=== PATIENT | female | born 1980 | race Caucasian/White ===

== ENCOUNTER 2018-07-27 21:48 | Inpatient (IN) ==
--- NOTE | 2018-07-27 20:54 | OB/GYN History & Physical ---
Date of Encounter: 07/27/18 Time of Encounter: 20:50 Assessment and Plan (1) Spontaneous onset of labor Current visit: Yes Status: Acute (2) Polyhydramnios Current visit: Yes Status: Acute Qualifiers: Fetus number: single or unspecified fetus Trimester: third trimester Qualified Code(s): O40.3XX0 - Polyhydramnios, third trimester, not applicable or unspecified (3) 38 weeks gestation of Current visit: No Status: Acute History of Present Illness Chief complaint: contractions HPI: Ms. Chavez is a 37 year old female G 2 P 1-0-0-1 at 38 4/7 weeks presents to labor and delivery with contractions that began earlier this evening. She is breathing thru them and getting uncomfortable. She is noticing some blood with wiping and blood in the toilet. She denies any leaking fluid. She reports good movement. Past Med Surg Social Fam HX - Past Medical History Source: patient Medical history: non-contributory Psychiatric history: depression - Past Surgical History Surgical History: other (wisdom teeth) - Social History Smoking Status: Never smoker Smokeless Tobacco Status: No Alcohol use: none Drug use: none - Family History Father Family Member Ethnicity: Non- Living Status: Still Living Hx Family Cardiac Disorders: Yes (bypass, stent placement) Hx Family Respiratory Disorders: No Hx Family Cancer: No Hx Family GI Disorders: No Hx Family Endocrine Disorder: No Hx Family Neuromuscular Disorders: No Hx Family Neurologic Disorders: No Hx Family HEENT Disorders: No Hx Family Autoimmune Disorders: No Obstetrical History - Pregnancies : 2 Para: 1 Term: 1 : 0 Ab's: 0 Livin - History/Complications History/Complications: AMA Medications and Allergies Famotidine 20 mg PO ONCE 07/23/18 [History] Tablet 1 tab PO DAILY 07/23/18 [History] Allergy/AdvReac Type Severity Reaction Status Date / Time No Known Allergies Allergy Verified 07/27/18 21:15 Review of System OB All systems PM: reviewed and no additional remarkable complaints except as stated - Constitutional Constitutional ROS IM: no chills, no fever(s), no headache(s) - Cardiovascular Cardiovascular: no chest pain - Respiratory Respiratory: no dyspnea on exertion, no wheezing - Genitourinary Genitourinary: amenorrhea Exam - Constitutional Constitutional: well developed, well nourished, no acute distress, average body habitus - HEENT HEENT: EOMI - Lungs Respiratory exam: CTAB - Cardiovascular Cardiovascular exam: RRR - Abdomen Abdomen: Present: bowel sounds normal, gravid, non tender - Vulva Vulva: bilateral: normal - Cervix Dilation: 6 (bulging bag of water) Effacement: 80 Station: -2 - Anus/Rectum Anus/Rectum: Present: normal perianal skin Results Result Diagrams: 07/27/18 20:40 All other labs normal. US - abdomen: image reviewed (EFW 3519 gm (93.9%) and RAOUL 27.66 cm cephalic on 07/13/2018) - VTE Reasons for not Prescribing Prophylaxis: Treatment not Indicated - Low risk for VTE
[2018-07-27 21:23] LABS: Basophils % 0.4 %; Eosinophils % 0.6 %; Hematocrit 26.9 % (35.3-44.9); Immature Granulocytes % 0.9 % (0-4); Lymphocytes # 1.8 K/mcL (0.6-4.6); Lymphocytes % 26.8 %; Mean Corpuscular HGB Conc 29.7 g/dL (31.6-35.5); Mean Corpuscular Hemoglobin 23.6 pg (28.0-33.3); Mean Corpuscular Volume 79.4 fL (83.0-100.0); Monocytes # 0.4 K/mcL (0.0-1.3); Monocytes % 5.3 %; Neutrophils # 4.5 K/mcL (1.6-8.9); Nucleated Red Blood Cells 0.4 /100 WBC (0); Platelet Count 178 K/mcL (140-400); Red Blood Count 3.39 M/mcL (3.82-4.97); Red Cell Distribution Width 15.5 % (11.5-14.5)
[~2018-07-27 21:48] MED LIST: *HR* Nalbuphine 10 MG/ML AMPUL IVP PRN; Epidural Premix (fent/bupiv) 110 ML EP ONE; Epidural Premix (fent/bupiv) 110 ML EP SCH; Famotidine 20 MG/2 ML VIAL IVP PRN; Lidocaine -MPF 1% 5 ML AMPUL ONE; Metoclopramide 10 MG/2 ML VIAL IVP PRN; Naloxone 0.4 MG/ML INJ IVP PRN; Ondansetron 4 MG/2 ML VIAL IVP PRN; Ringers Solution, Lactated 1,000 ML IVC SCH; Ringers Solution, Lactated 1,000 ML ONE
[2018-07-27 21:51] LABS: Amphetamine Screen,Urine Negative ng/mL (Cutoff=1000); Barbiturate Screen,Urine Negative ng/mL (Cutoff=200); Benzodiazepines Screen,Urine Negative ng/mL (Cutoff=200); Cannabinoid Screen,Urine Negative ng/mL (Cutoff = 50); Cocaine Screen,Urine Negative ng/mL (Cutoff= 300); Opiate Screen,Urine Negative ng/mL (Cutoff=300); Phencyclidine Screen,Urine Negative ng/mL (Cutoff=25)
[2018-07-27 21:56] LABS: Protein/Creatinine Ratio,Urine 0.41 mg/mg (0.00-0.20)
--- NOTE | 2018-07-27 21:58 | Anesthesia Evaluation PreOp ---
Date of Encounter: 07/27/18 Time of Encounter: 21:56 - Past History Planned Operation: VERONICA Cardiac History: Denies any Significant Hx Pulmonary History: Denies Any Significant HX HOMEMAKER COMPANION History: Denies Any Significant HX Other Medical History: Denies Any Significant HX Anesthesia History: No Prior Anesthetic Complications, Past Anesthesia : Yes Alcohol Use: none Drug use: none Medications and Allergies Famotidine 20 mg PO ONCE 07/23/18 [History] Tablet 1 tab PO DAILY 07/23/18 [History] Allergy/AdvReac Type Severity Reaction Status Date / Time No Known Allergies Allergy Verified 07/27/18 21:15 - Meds/Allergy Pre-op Review Medications Reviewed: Yes Allergies Reviewed: Yes Beta Blockers on Current Med List: No Anesthesia Results - Labs 07/27/18 20:40 Anesthesia Exam O2 Sat Height 1.63 m Weight 82.8 kg Pain Scale: 10 Pain Scale Used: Numeric (1 - 10) - HEENT Pupil (Motor): Pupils equal Mallampati: II Teeth: Normal Oral Opening: Greater than 3 - HOMEMAKER COMPANION LOC: Oriented HOMEMAKER COMPANION Motor: Normal RUE, Normal LUE, Normal RLE, Normal LLE, Normal Face HOMEMAKER COMPANION Sensory: Normal: RUE, LUE, RLE, LLE, Face - Cardiac Rhythm: Regular Murmur: None JVD: No Carotid Bruit: No - Pulmonary Breath Sounds: bilateral Clear Respiratory Effort: Symmetrical Anesthesia Assess/Plan ASA Score: 2 Level of consciousness: Cooperative, Oriented Anesthetic Plan: General, Epidural Autologous Blood: Yes Monitoring Plan: Standard Monitors Anes Supervising Prov Stmt: previous epidural pt states that it "did not work" and that the sobeida before said "i have a curvature in my spine." pt did not have any other complications. all questions answered about epidural and risks/benefits discussed.
--- NOTE | 2018-07-27 22:00 | Anesthesia Procedures ---
Addendum entered and electronically signed by Maira Leon CRNA 07/28/18 13:39: Infant Delivery Date: 07/28/18 Infant Delivery Time: 09:02 Original Note: Date of Encounter: 07/27/18 Time of Encounter: 21:58 Procedures: Anesthesia - Epidural/Spinal Patient ID/Chart reviewed: Yes Patient examined: Yes OB Eval: Gestational age: 38.4 OB Eval: : 2 OB Eval: Hx Para: 1 OB Eval: Dilated at (cm): 6 OB Eval: Contractions: Non-stressed pattern Consent Obtained: Yes Supplemental Oxygen: None/Room Air Site Prep: Aseptic Technique, Sterile prep and drape, Povidone-Iodine 1% Patient position: upright Local Anesthetic: Lidocaine 1% Amount of Local Anesthetic used: 3 Touhy Needle Gauge: 18 Touhy Needle Depth (cm): 8 Catheter Depth at Skin (cm): 20 Test Dose (1.5% Lido + Epi): Volume given (mls): 5 Test Dose Result: Negative Loading Dose: Other: 10mls epidural pharm bag premix solution Loading Dose Administered: Thru Catheter Infusion Med: 0.125% Bupivacaine w/ 2 mcg/ml Fentanyl Infusion Rate (mls/hr): 16 ([id number]) Catheter Secured in Place: Tegaderm, Tape Interspace Used: L3-L4 Loss of Resistance (CELESTE): Yes Blood: No CSF: No Paresthesia: No Procedure: pt tolerated procedure well. no complications. vss. fhr stable.
--- NOTE | 2018-07-27 22:11 | OB Labor Progress Note ---
Date of Encounter: 07/27/18 Time of Encounter: 22:08 Labor Progress Note - Subjective Subjective: Patient is comfortable after the epidural - Cervix Cervix: 6/80/-1 cephalic - Heart Tones Heart Tones: 135, category 1 FHR tracing - Radnor Radnor: q 2-3 minutes spontaneous - Interventions Interventions: AROM with meconium fluid noted, large amount
[2018-07-27] MEDS ORDERED: Famotidine 20 MG/2 ML VIAL IVP ONE (22:40)
[2018-07-28] MEDS ORDERED: Oxytocin 20 units/ LR 1000 mL 20 UNIT/1,000 ML BAG IVC ONE ×3 (04:58→12:07)
[2018-07-28] MEDS ORDERED: *HR* FentaNYL (PF) 100 MCG/2 ML VIAL ONE (06:56)
[2018-07-28 07:08] LABS: Alanine Aminotransferase 12 Units/L (7-52); Aspartate Amino Transferase 21 Units/L (13-39); BUN/Creatinine Ratio 11 (6-26); Blood Urea Nitrogen 8 mg/dL (6-20); Lactate Dehydrogenase 214 Units/L (140-271); Uric Acid 6.6 mg/dL (2.3-7.6); eGFR For Non-African Americans > 60 (> 60)
--- NOTE | 2018-07-28 07:08 | Anesthesia Progress Note ---
Date of Encounter: 07/28/18 Time of Encounter: 07:07 Anesthesia Note - Note Note: 07/28/18 07:07 called for increased pain during contractions. pain 10/10. bolus given of 8ml of 0.2% ropi and 100mcg fentanyl after negative aspiration. pt tolerated well. gtt increased to 18ml/hr.
--- NOTE | 2018-07-28 09:33 | OB/GYN Procedure Note ---
Delivery - Delivery Date: 07/28/18 Provider: aYsmin Hunt Intrapartum events: meconium Delivery augmentation: rupture of membranes Delivery monitor: external FHT, external uterine Anesthesia: epidural Quantitated Blood Loss: 400 - (s) A Infant Delivery Date: 07/28/18 Infant Delivery Time: 09:02 Presentation: vertex Position: OA Route of delivery: Gender: Female Viability: Viable Pounds: 9 Ounces: 0 Weight Gram: 4.1 kg at 1 minute: 7 at 5 mins: 9 Shoulder Dystocia: not encountered Specimens collected: cord blood Placenta: spontaneous Cord: 3 umbilical vessels - Repair Episiotomy: none Laceration Description: Perineal - 2nd Degree - Complications Delivery complications: none Delivery comments: Called to room with patient complete and +2 station. Under maternal effort she delivered a viable female weighing 9 lb 1 oz and Apgars 7 and 9 at 1 and 5 minutes respectively over a second degree perineal laceration. Following delivery of the head there was no nuchal cord or shoulder dystocia encountered. The remainder of the infant delivered with maternal effort and was placed on mom's abdomen. Cord was double clamped and cut. Cord blood was collected. Placenta delivered spontaneously, complete, and intact with a 3 vessel cord. Second degree perineal laceration was repaired using 3-0 vicryl in standard fashion. There were no cervical, vaginal, or labial lacerations on exam. Mother and infant are recovering in the LDR in stable condition. - Disposition Mom disposition: stable in LDR [place] disposition: stable in LDR
[2018-07-28] MEDS ORDERED: Famotidine 20 MG TABLET PO SCH (12:07)
[2018-07-28] MEDS ORDERED: Rho Immune Globulin 1,500 UNIT SYRINGE IM PRN (12:07)
[2018-07-28] MEDS ORDERED: Acetaminophen 325 MG TABLET PO PRN (12:07)
[2018-07-28] MEDS ORDERED: Oxytocin 20 units/ LR 1000 mL 20 UNIT/1,000 ML BAG IVC SCH (12:07)
[2018-07-28] MEDS: Ibuprofen 600 MG TABLET PO PRN ×3 (12:17→23:39)
[2018-07-29 08:29] LABS: Basophils % 0.3 %; Eosinophils # 0.1 K/mcL (0.0-0.6); Eosinophils % 0.9 %; Hematocrit 25.2 % (35.3-44.9); Hemoglobin 7.7 g/dL (11.5-15.4); Immature Granulocytes % 0.7 % (0-4); Lymphocytes # 2.2 K/mcL (0.6-4.6); Lymphocytes % 15.6 %; Mean Corpuscular HGB Conc 30.6 g/dL (31.6-35.5); Mean Corpuscular Hemoglobin 23.9 pg (28.0-33.3); Mean Corpuscular Volume 78.3 fL (83.0-100.0); Monocytes # 0.6 K/mcL (0.0-1.3); Monocytes % 4.4 %; Neutrophils # 11.2 K/mcL (1.6-8.9); Platelet Count 174 K/mcL (140-400); Red Blood Count 3.22 M/mcL (3.82-4.97); Red Cell Distribution Width 15.7 % (11.5-14.5); Segmented Neutrophils % 78.1 %
[2018-07-29 09:00] VITALS: BP 148/83
[2018-07-29] MEDS ORDERED: Prenatal Vit/FA 1 EACH TABLET PO SCH (09:00)
[2018-07-29] MEDS: Ibuprofen 600 MG TABLET PO PRN (09:17)
--- NOTE | 2018-07-29 14:56 | Discharge Summary ---
Date of Encounter: 07/29/18 Time of Encounter: 14:54 - Discharge Diagnosis (1) Vaginal delivery Priority: Primary Status: Acute Comments: Patient meeting day one milestones. Pain well-controlled with prescribed medications. Voiding without difficulty, tolerating regular diet, bleeding light.. No bowel movement yet. Anticipate discharge today (2) Breast feeding status of mother Priority: Secondary Status: Acute Comments: support as needed Will provide breast pump prescription (3) anemia Priority: Secondary Status: Acute Comments: Continue iron bid . RX sent to patient's pharmacy (4) Second degree perineal laceration Priority: Secondary Status: Acute Comments: Ibuprofen, ice pack, dermoplast as needed for discomfort. May use sitz bath. - Discharge Medications Prescriptions: New Breast Pump [BREAST PUMP] 1 each .ROUTE AD #1 each Docusate [Colace] 100 mg PO BID capsule Benzocaine/Menthol [Dermoplast Pain Relieving [place]] 78 gm TP PRN PRN #1 aerosol PRN Reason: perineal pain Ferrous Sulfate 325 mg PO BID #60 tablet Ibuprofen [Motrin] 600 mg PO Q6HR PRN #60 tablet PRN Reason: Cramping Acetaminophen [Tylenol] 650 mg PO Q6HR PRN tablet PRN Reason: Mild Pain Continued Tablet 1 tab PO DAILY Famotidine 20 mg PO ONCE Home Medications: Famotidine 20 mg PO ONCE 07/23/18 [History] Tablet 1 tab PO DAILY 07/23/18 [History] Acetaminophen [Tylenol] 650 mg PO Q6HR PRN tablet 07/29/18 [Rx] Benzocaine/Menthol [Dermoplast Pain Relieving [place]] 78 gm TP PRN PRN #1 aerosol 07/29/18 [Rx] Breast Pump [BREAST PUMP] 1 each .ROUTE AD #1 each 07/29/18 [Rx] Docusate [Colace] 100 mg PO BID capsule 07/29/18 [Rx] Ferrous Sulfate 325 mg PO BID #60 tablet 07/29/18 [Rx] Ibuprofen [Motrin] 600 mg PO Q6HR PRN #60 tablet 07/29/18 [Rx] Allergies/Adverse Reactions: Allergy/AdvReac Type Severity Reaction Status Date / Time No Known Allergies Allergy Verified 07/27/18 21:15 Data Procedures and tests throughout hospitalization: Laboratory Tests 07/27/18 07/27/18 07/27/18 20:40 20:40 20:43 WBC 6.8 RBC 3.39 L Hgb 8.0 L D Hct 26.9 L MCV 79.4 L MCH 23.6 L MCHC 29.7 L RDW 15.5 H Plt Count 178 MPV 13.0 H Immature Gran % 0.9 Seg Neutrophils % 66.0 Lymphocytes % 26.8 Monocytes % 5.3 Eosinophils % 0.6 Basophils % 0.4 Neutrophils # 4.5 Lymphocytes # 1.8 Monocytes # 0.4 Eosinophils # 0.0 Basophils # 0.0 Nucleated RBCs/100 WBC 0.4 H BUN 8 Creatinine 0.71 Est GFR ( Amer) > 60 Est GFR (Non-Af Amer) > 60 BUN/Creatinine Ratio 11 Uric Acid 6.6 AST 21 ALT 12 Lactate Dehydrogenase 214 Urine Creatinine 185 Protein/Creatinin Ratio 0.41 H Urine Total Protein 76 H Urine Opiates Screen Ur Barbiturates Screen Ur Phencyclidine Scrn Ur Amphetamines Screen U Benzodiazepines Scrn Urine Cocaine Screen U Marijuana (THC) Screen Ur Drug Screen Interp Screen Baby's Blood Type Mother's Blood Type Rhogam Indicated Rhogam Req for Mother 07/27/18 07/28/18 07/29/18 21:25 09:30 04:58 WBC 14.3 H D RBC 3.22 L Hgb 7.7 L Hct 25.2 L MCV 78.3 L MCH 23.9 L MCHC 30.6 L RDW 15.7 H Plt Count 174 MPV 12.0 Immature Gran % 0.7 Seg Neutrophils % 78.1 Lymphocytes % 15.6 Monocytes % 4.4 Eosinophils % 0.9 Basophils % 0.3 Neutrophils # 11.2 H Lymphocytes # 2.2 Monocytes # 0.6 Eosinophils # 0.1 Basophils # 0.0 Nucleated RBCs/100 WBC BUN Creatinine Est GFR ( Amer) Est GFR (Non-Af Amer) BUN/Creatinine Ratio Uric Acid AST ALT Lactate Dehydrogenase Urine Creatinine Protein/Creatinin Ratio Urine Total Protein Urine Opiates Screen Negative Ur Barbiturates Screen Negative Ur Phencyclidine Scrn Negative Ur Amphetamines Screen Negative U Benzodiazepines Scrn Negative Urine Cocaine Screen Negative U Marijuana (THC) Screen Negative Ur Drug Screen Interp See Below Screen NEGATIVE Baby's Blood Type O RH POSITIVE Mother's Blood Type O RH NEGATIVE Rhogam Indicated YES Rhogam Req for Mother 1 Labs on day of discharge: Labs from last 24 hours 07/29/18 07/28/18 04:58 09:30 WBC 14.3 H D RBC 3.22 L Hgb 7.7 L Hct 25.2 L MCV 78.3 L MCH 23.9 L MCHC 30.6 L RDW 15.7 H Plt Count 174 MPV 12.0 Immature Gran % 0.7 Seg Neutrophils % 78.1 Lymphocytes % 15.6 Monocytes % 4.4 Eosinophils % 0.9 Basophils % 0.3 Neutrophils # 11.2 H Lymphocytes # 2.2 Monocytes # 0.6 Eosinophils # 0.1 Basophils # 0.0 Screen NEGATIVE Baby's Blood Type O RH POSITIVE Mother's Blood Type O RH NEGATIVE Rhogam Indicated YES Rhogam Req for Mother 1 Date of admission: 07/27/18 21:48 Primary care physician: Lion Douglass DO Consults: 07/28/18 12:07 Consult to Cash Clerk [CONS] Routine Comment: Vaginal delivery, consult needed Discharging clinician: Polina Sheffield Anticipated date of discharge: 07/29/18 - Patient Status Disposition: Home, Self-Care Functional capacity at discharge: independent ambulation Overall status at discharge: patient is progressing back to baseline - Discharge Instructions Follow Up With: Lion Douglass DO [Primary Care Provider] - Yasmin Hunt DO [Partnered Physician] - - Diet and Activity Activity: resume usual activities as tolerated Diet: regular diet Hospital Course Reason for admission: active labor, IUP at term Delivery: Episiotomy: none Laceration: 2nd degree Other procedures: none complications: none Discharge diagnosis: IUP at term delivered [place] baby: female Hospital course: Delivery Date: 07/28/18 Provider: Yasmin Hunt Intrapartum events: meconium Delivery augmentation: rupture of membranes Delivery monitor: external FHT, external uterine Anesthesia: epidural Quantitated Blood Loss: 400 - Infant (s) A Infant Delivery Date: 07/28/18 Infant Delivery Time: 09:02 Presentation: vertex Position: OA Route of delivery: Gender: Female Viability: Viable Pounds: 9 Ounces: 0 Weight Gram: 4.1 kg at 1 minute: 7 at 5 mins: 9 Shoulder Dystocia: not encountered Specimens collected: cord blood Placenta: spontaneous Cord: 3 umbilical vessels - Repair Episiotomy: none Laceration Description: Perineal - 2nd Degree - Complications Delivery complications: none Delivery comments: Called to room with patient complete and +2 station. Under maternal effort she delivered a viable female weighing 9 lb 1 oz and Apgars 7 and 9 at 1 and 5 minutes respectively over a second degree perineal laceration. Following delivery of the head there was no nuchal cord or shoulder dystocia encountered. The remainder of the infant delivered with maternal effort and was placed on mom's abdomen. Cord was double clamped and cut. Cord blood was collected. Placenta delivered spontaneously, complete, and intact with a 3 vessel cord. Second degree perineal laceration was repaired using 3-0 vicryl in standard fashion. There were no cervical, vaginal, or labial lacerations on exam. Mother and infant are recovering in the LDR in stable condition. - Disposition Mom disposition: stable in LDR disposition: stable in LDR Time Attestation: Total time spent providing and/or coordinating discharge services: Time Spent: Less than 30 minutes Exam - Constitutional Vitals: Temp Pulse Resp BP Pulse Ox 97.5 F L 67 14 148/83 98 07/29/18 08:59 07/29/18 08:59 07/29/18 08:59 07/29/18 08:59 07/29/18 08:59 General appearance IM: A&O X 3, pleasant, no acute distress, answers questions appropriately - Respiratory Respiratory exam: Present: CTAB - Cardiovascular Cardiovascular exam IM: Present: RRR, +S1, +S2 - GI/Abdominal GI/Abdominal exam IM: normal bowel sounds - Rectal Rectal exam: deferred - External exam: normal external exam Uterine Tone: Firm Uterus Position: At Umbilicus, Midline - Extremities Exam Extremities exam IM: Present: full ROM, normal capillary refill, normal inspection - Neurological Exam Neurological exam: alert, normal gait, oriented X3
== END 2018-07-29 16:00 | disposition home or self-care (01) | DRG 560 ==
LOC: 1NENULAB → 1NENUOBS 07-28 12:16
PROVIDERS: ADMIT Obstetrics & Gynecology; ATTEND Obstetrics & Gynecology

== ENCOUNTER 2018-07-30 13:58 | Observation (INO) ==
[2018-07-30] MEDS ORDERED: Magnesium Sulfate 4 GM in 0.9 % Sodium Chloride 100 ML IVPB ONE (14:17)
--- NOTE | 2018-07-30 14:30 | Emergency Department Note ---
Disposition Clinical Impression: Pre-eclampsia, Disposition: Still a Patient General Adult HPI - General Chief complaint: ED General Medical Stated complaint: complication Time Seen by Provider: 07/30/18 14:01 Source: patient, family Limitations: no limitations Nursing Notes Reviewed: Yes Vital Signs Reviewed: Yes - History of Present Illness HPI Narrative: ED attending attestation note: I examined this patient and my medical decision-making was reviewed with the emergency medicine resident ANGELA GUDINO agree with the documented findings, disposition and treatment plan as described except to the extent set forth below. Briefly: 37-year-old female 40 day wrist status post vaginal delivery process the emergency department feeling poorly and swelling of her extremities patient also has right upper quadrant pain and on examination she was found to be hypertensive 150 systolic this was confirmed. Patient denies visual disturbances there is no mental status changes her lungs are clear she is af ebrile patient will undergo laboratory screening and IV magnesium. We strongly suspect preeclampsia. We will consult OB as the laboratory testing comes back. Providing 30 minutes critical care service for this patient. Disposition pending Pain Scale: 6 - Related Data Home Medications Medication Instructions Recorded Confirmed Famotidine 20 mg PO ONCE 07/23/18 07/27/18 Tablet 1 tab PO DAILY 07/23/18 07/27/18 Previous Rx's Medication Instructions Recorded Acetaminophen [Tylenol] 650 mg PO Q6HR PRN tablet 07/29/18 Benzocaine/Menthol [Dermoplast 78 gm TP PRN PRN #1 aerosol 07/29/18 Pain Relieving [place]] Breast Pump [BREAST PUMP] 1 each .ROUTE AD #1 each 07/29/18 Docusate [Colace] 100 mg PO BID capsule 07/29/18 Ferrous Sulfate 325 mg PO BID #60 tablet 07/29/18 Ibuprofen [Motrin] 600 mg PO Q6HR PRN #60 tablet 07/29/18 Allergies Allergy/AdvReac Type Severity Reaction Status Date / Time No Known Allergies Allergy Verified 07/27/18 21:15 Past Medical History - Past Medical History Medical history: Reports: no medical history Surgical history: Reports: other (wisdom teeth) Psychiatric history: Reports: depression ADVANCED ANALYTICS ASSOCIATE history: Reports: no [employer]ED A[employer] ASSOCIATE history - Social History Smoking Status: Never smoker Smokeless Tobacco Status: No Alcohol use: Reports: none Drug use: Reports: none Physical Exam - General Limitations: no limitations General appearance: alert, in no apparent distress Course Vital Signs Temperature 98.8 F 07/30/18 14:02 Pulse Rate 73 07/30/18 14:02 Respiratory Rate 18 07/30/18 14:02 Blood Pressure 157/108 07/30/18 14:02 O2 Sat by Pulse Oximetry 100 07/30/18 14:02 Temperature 98.8 F 07/30/18 14:02 Pulse Rate 73 07/30/18 14:02 Respiratory Rate 18 07/30/18 14:02 Blood Pressure 157/108 07/30/18 14:02 O2 Sat by Pulse Oximetry 100 07/30/18 14:02 Oxygen Delivery Oxygen Delivery Room Air
--- NOTE | 2018-07-30 14:31 | Emergency Department Note ---
Disposition Clinical Impression: Pre-eclampsia, Disposition: Admitted As Inpatient Condition: Fair Forms: ED Satisfaction Letter, Work/School Release Time of Disposition: 15:40 General Adult HPI - General Chief complaint: ED General Medical Stated complaint: complication Time Seen by Provider: 07/30/18 14:01 Source: patient, family Limitations: no limitations Nursing Notes Reviewed: Yes Vital Signs Reviewed: Yes - History of Present Illness HPI Narrative: 37-year-old female 48hr status post spontaneous vaginal delivery at this facility presents for evaluation of elevated blood pressure, increasing lower extremity swelling. Patient has no pre- history of hypertension. She was not hypertensive during . Since delivery 48 hours ago, patient has noticed increasing blood pressure, increase in lower extremity swelling worse than at the end of her . She has had several episodes of very mild nausea. No vomiting. No decreased urination 7: She externally notes urinary frequency. This morning she also had a twinge of right upper quadrant pain that was self-limited. Her uterine cramping is improving. Her vaginal spotting status post delivery is improving. She had no complications with the first . MANAGER FIELD INVESTIGATIONS: Dr. Hunt ROS: Positive: Elevated blood pressure, increased lower extremity swelling, right upper quadrant pain Negative: Fever, chills, vomiting, chest pains, palpitations, dyspnea, diaphoresis, headache, confusion, vision changes Pain Scale: 6 - Related Data Home Medications Medication Instructions Recorded Confirmed Famotidine 20 mg PO ONCE 07/23/18 07/27/18 Tablet 1 tab PO DAILY 07/23/18 07/27/18 Previous Rx's Medication Instructions Recorded Acetaminophen [Tylenol] 650 mg PO Q6HR PRN tablet 07/29/18 Benzocaine/Menthol [Dermoplast 78 gm TP PRN PRN #1 aerosol 07/29/18 Pain Relieving [place]] Breast Pump [BREAST PUMP] 1 each .ROUTE AD #1 each 07/29/18 Docusate [Colace] 100 mg PO BID capsule 07/29/18 Ferrous Sulfate 325 mg PO BID #60 tablet 07/29/18 Ibuprofen [Motrin] 600 mg PO Q6HR PRN #60 tablet 07/29/18 Allergies Allergy/AdvReac Type Severity Reaction Status Date / Time No Known Allergies Allergy Verified 07/27/18 21:15 All systems ED: reviewed and negative except as stated. Review of Systems: As Per HPI Past Medical History - Past Medical History Medical history: Reports: no medical history Surgical history: Reports: other (wisdom teeth) Psychiatric history: Reports: depression MANAGER FIELD INVESTIGATIONS history: Reports: no MANAGER FIELD INVESTIGATIONS history - Social History Smoking Status: Never smoker Smokeless Tobacco Status: No Alcohol use: Reports: none Drug use: Reports: none Physical Exam Vital Signs Reviewed General: Patient is alert, oriented. She appears anxious. Head: atraumatic, normocephalic Eye: normal appearance, PERRL, EOMI, no scleral icterus, no conjunctival injection ENT: mucous membranes moist, normal external ear exam Neck: normal inspection, trachea midline, full ROM Chest: normal inspection, symmetric chest rise Respiratory: Good respiratory effort. Bilateral breath sounds are clear without wheezing, crackles, or rhonchi. Cardiovascular: Regular rate and rhythm. No clicks, rubs, gallops, or murmors. Normal heart sounds. Bilateral radial pulses 2/4 equal. 3+ pitting edema in the bilateral lower extremities up to the level of the patella with trace edema to the level of the midthigh. Abdomen: Bowel sounds present normoactive. Abdomen is soft, nondistended, and nontender. No guarding or rebound. No organomegaly noted. Musculoskeletal: Spontaneously moving all extremities. Skin: warm, dry, intact. Neuro: GCS 15. No focal neurologic deficits observed. Psych: Patient's affect is appropriate for situation. - General Limitations: no limitations General appearance: alert, in no apparent distress Course Course Narrative: Immediate concern is for preeclampsia. Initial automatic blood pressure is 150/101. Repeat manual blood pressure 162/98. RUQ pain. CBC, LFTs, bilirubin, uric acid. 4 g magnesium sulfate now. Will monitor and reassess clinical status. Once labs return and patient has begun to respond to magnesium sulfate, will consult obstetrics. I discussed the case with my attending before, during and after presentation with my attending physician who agrees with my management and plan of care. Had a discussion with the nurse master mechanic Susanne from OB. There was some concern in that I had ordered and administered magnesium prior to the completion of the patient's lab work. Given the information available to me on initial presentation my primary concern was preeclampsia. Given the magnesium sulfate has been administered, patient admitted to OB services for 24- hour observation. I discussed the above with the patient. All questions answered. Vital Signs Temperature 98.8 F 07/30/18 14:02 Pulse Rate 73 07/30/18 14:02 Respiratory Rate 18 07/30/18 14:02 Blood Pressure 157/108 07/30/18 14:02 O2 Sat by Pulse Oximetry 100 07/30/18 14:02 Temperature 98.8 F 07/30/18 14:02 Pulse Rate 59 07/30/18 15:25 Respiratory Rate 16 07/30/18 15:25 Blood Pressure 145/87 07/30/18 15:25 O2 Sat by Pulse Oximetry 98 07/30/18 15:25 Oxygen Delivery Oxygen Delivery Room Air Medical Decision Making - Lab Data Result diagrams: 07/30/18 14:06 Lab Results 07/30/18 07/30/18 07/30/18 Range/Units 14:06 14:06 14:14 WBC 12.1 H (4.3-11.1) K/mcL RBC 3.20 L (3.82-4.97) M/mcL Hgb 7.6 L (11.5-15.4) g/dL Hct 25.5 L (35.3-44.9) % MCV 79.7 L (83.0-100.0) fL MCH 23.8 L (28.0-33.3) pg MCHC 29.8 L (31.6-35.5) g/dL RDW 15.6 H (11.5-14.5) % Plt Count 229 (140-400) K/mcL MPV 12.1 (9.4-12.4) fL Immature Gran % 1.2 (0-4) % Seg Neutrophils % 76.3 % Lymphocytes % 14.8 % Monocytes % 5.8 % Eosinophils % 1.7 % Basophils % 0.2 % Neutrophils # 9.3 H (1.6-8.9) K/mcL Lymphocytes # 1.8 (0.6-4.6) K/mcL Monocytes # 0.7 (0.0-1.3) K/mcL Eosinophils # 0.2 (0.0-0.6) K/mcL Basophils # 0.0 (0.0-0.2) K/mcL Total Bilirubin 0.3 (0.3-1.0) mg/dL Direct Bilirubin 0.0 (0.0-0.2) mg/dL Indirect Bilirubin 0.3 (0.0-1.2) mg/dL AST 24 (13-39) Units/L ALT 16 (7-52) Units/L Alkaline Phosphatase 102 (34-104) Units/L Serum Total Protein 5.7 L (6.4-8.9) g/dL Albumin 3.0 L (3.5-5.7) g/dL Globulin 2.7 (2.4-3.5) g/dL Albumin/Globulin Ratio 1.1 (1.1-2.2) Urine Color (Yellow) Urine Clarity (Clear) Urine pH (5.0-8.0) pH Units Ur Specific [place] (1.010-1.025) Urine Protein (Neg-Trace) mg/dL Urine Glucose (UA) (Normal) mg/dL Urine Ketones (Negative) mg/dL Urine Blood (Negative) Urine Nitrite (Negative) Urine Bilirubin (Negative) Urine Urobilinogen (Normal) mg/dL Ur Leukocyte Esterase (Negative) Urine Microscopic RBC (0-3) per hpf Urine Microscopic WBC (0-3) per hpf Ur Squamous Epith Cells (None-Few) per lpf Urine Bacteria (None-Few) per hpf Hyaline Casts (None-Few) per lpf Ur Culture Indicated? (NO) Ur Uric Acid 16 mg/dL 07/30/18 Range/Units 14:21 WBC (4.3-11.1) K/mcL RBC (3.82-4.97) M/mcL Hgb (11.5-15.4) g/dL Hct (35.3-44.9) % MCV (83.0-100.0) fL MCH (28.0-33.3) pg MCHC (31.6-35.5) g/dL RDW (11.5-14.5) % Plt Count (140-400) K/mcL MPV (9.4-12.4) fL Immature Gran % (0-4) % Seg Neutrophils % % Lymphocytes % % Monocytes % % Eosinophils % % Basophils % % Neutrophils # (1.6-8.9) K/mcL Lymphocytes # (0.6-4.6) K/mcL Monocytes # (0.0-1.3) K/mcL Eosinophils # (0.0-0.6) K/mcL Basophils # (0.0-0.2) K/mcL Total Bilirubin (0.3-1.0) mg/dL Direct Bilirubin (0.0-0.2) mg/dL Indirect Bilirubin (0.0-1.2) mg/dL AST (13-39) Units/L ALT (7-52) Units/L Alkaline Phosphatase (34-104) Units/L Serum Total Protein (6.4-8.9) g/dL Albumin (3.5-5.7) g/dL Globulin (2.4-3.5) g/dL Albumin/Globulin Ratio (1.1-2.2) Urine Color Yellow (Yellow) Urine Clarity Clear (Clear) Urine pH 6.5 (5.0-8.0) pH Units Ur Specific [place] 1.011 (1.010-1.025) Urine Protein Negative (Neg-Trace) mg/dL Urine Glucose (UA) Normal (Normal) mg/dL Urine Ketones Negative (Negative) mg/dL Urine Blood Large H (Negative) Urine Nitrite Negative (Negative) Urine Bilirubin Negative (Negative) Urine Urobilinogen Normal (Normal) mg/dL Ur Leukocyte Esterase Moderate H (Negative) Urine Microscopic RBC 15-30 H (0-3) per hpf Urine Microscopic WBC 30-50 H (0-3) per hpf Ur Squamous Epith Cells Few (None-Few) per lpf Urine Bacteria Few (None-Few) per hpf Hyaline Casts None Seen (None-Few) per lpf Ur Culture Indicated? YES A (NO) Ur Uric Acid mg/dL
[2018-07-30 14:39] LABS: Bilirubin,Urine Negative (Negative); Blood,Urine Large (Negative); Clarity,Urine Clear (Clear); Color,Urine Yellow (Yellow); Glucose,Urine (UA) Normal (Normal); Ketones,Urine Negative (Negative); Leukocyte Esterase,Urine Moderate (Negative); Nitrite,Urine Negative (Negative); PH,Urine 6.5 pH Units (5.0-8.0); Protein,Urine Negative (Neg-Trace); Specific Gravity,Urine 1.011 (1.010-1.025); Urobilinogen,Urine Normal (Normal)
[2018-07-30 14:42] LABS: Bacteria,Urine Few per hpf (None-Few); Hyaline Casts,Urine None Seen per lpf (None-Few); RBC,Urine 15-30 per hpf (0-3); Squamous Epithelial Cell,Urine Few per lpf (None-Few); WBC,Urine 30-50 per hpf (0-3)
[2018-07-30 14:45] LABS: Basophils % 0.2 %; Eosinophils # 0.2 K/mcL (0.0-0.6); Eosinophils % 1.7 %; Hematocrit 25.5 % (35.3-44.9); Hemoglobin 7.6 g/dL (11.5-15.4); Immature Granulocytes % 1.2 % (0-4); Lymphocytes # 1.8 K/mcL (0.6-4.6); Lymphocytes % 14.8 %; Mean Corpuscular HGB Conc 29.8 g/dL (31.6-35.5); Mean Corpuscular Hemoglobin 23.8 pg (28.0-33.3); Mean Corpuscular Volume 79.7 fL (83.0-100.0); Mean Platelet Volume 12.1 fL (9.4-12.4); Monocytes # 0.7 K/mcL (0.0-1.3); Monocytes % 5.8 %; Neutrophils # 9.3 K/mcL (1.6-8.9); Platelet Count 229 K/mcL (140-400); Red Cell Distribution Width 15.6 % (11.5-14.5); Segmented Neutrophils % 76.3 %
[2018-07-30 15:00] LABS: Albumin/Globulin Ratio 1.1 (1.1-2.2); Bilirubin,Indirect 0.3 mg/dL (0.0-1.2); Bilirubin,Total 0.3 mg/dL (0.3-1.0); Globulin 2.7 g/dL (2.4-3.5); Total Protein 5.7 g/dL (6.4-8.9)
--- NOTE | 2018-07-30 16:14 | OB/GYN History & Physical ---
Date of Encounter: 07/30/18 Time of Encounter: 16:10 Assessment and Plan (1) Hypertension affecting , delivered, current hospitalization Current visit: Yes Status: Acute Pt with elevated BPs in the 150s/100s PIH labs normaal in ED, will recheck at 2200 Given IV magnesium in the ED Will continue to trend BPs and order Labetalol PRN Mag checks q1H (2) anemia Current visit: Yes Status: Acute Current hemoglobin 7.6, will continue to trend Patient receiving iron supplementation as an outpatient BID Not currently symptomatic Consider transfusion if falls below 7 or pt becomes symptomatic History of Present Illness Chief complaint: elevated BP at home HPI: Ms. Chavez is a 37 year old female who is S/P vaginal delivery 48 hours ago who presented to the ED with concerns for elevated blood pressures at home. She also admits to increased swelling of her lower legs bilaterally. She had no complications with her first and had a few elevated blood pressures prior to delivery of her second child but did not suffer from induced hypertension or pre-eclampsia. She currently denies headache, changes in mental status, chest pain, shortness of breath, N/V/D, decreased urination or pain with urination. She did have some brief RUQ pain which self resolved and admits to a minor headache with scotoma. She also admits to a dry cough which started before she went into labor. Due to elevated BP in the ER, IV magnesium was started. Past Med Surg Social Fam HX - Past Medical History Attestation: Yes The following information was validated with the patient. Medical history: no medical history Psychiatric history: depression - Past Surgical History Surgical History: other (wisdom teeth) - Social History Smoking Status: Never smoker Smokeless Tobacco Status: No Alcohol use: none Drug use: none - Family History Father Family Member Ethnicity: Non- Living Status: Still Living Hx Family Cardiac Disorders: Yes (bypass, stent placement) Hx Family Respiratory Disorders: No Hx Family Cancer: No Hx Family GI Disorders: No Hx Family Endocrine Disorder: No Hx Family Neuromuscular Disorders: No Hx Family Neurologic Disorders: No Hx Family HEENT Disorders: No Hx Family Autoimmune Disorders: No Obstetrical History - Pregnancies : 2 Para: 2 Term: 2 : 0 Ab's: 0 Livin Medications and Allergies Acetaminophen [Tylenol] 650 mg PO Q6HR PRN tablet 07/29/18 [Rx] Benzocaine/Menthol [Dermoplast Pain Relieving [place]] 78 gm TP PRN PRN #1 aerosol 07/29/18 [Rx] Breast Pump [BREAST PUMP] 1 each .ROUTE AD #1 each 07/29/18 [Rx] Docusate [Colace] 100 mg PO BID capsule 07/29/18 [Rx] Ferrous Sulfate 325 mg PO BID #60 tablet 07/29/18 [Rx] Ibuprofen [Motrin] 600 mg PO Q6HR PRN #60 tablet 07/29/18 [Rx] Pnv with Ca,No.72/Iron/FA [Pnv Plus Multivit Tab] 1 each PO DAILY 07/30/18 [History] Allergy/AdvReac Type Severity Reaction Status Date / Time No Known Allergies Allergy Verified 07/27/18 21:15 Review of System OB All systems PM: reviewed and no additional remarkable complaints except as stated - Constitutional Constitutional ROS IM: fatigue, no fever(s), no headache(s) - Breasts Breasts: no pain, no skin changes - Cardiovascular Cardiovascular: leg edema, pedal edema, no chest pain, no dyspnea - Respiratory Respiratory: no cough, no dyspnea, no wheezing, no pain on inspiration - Gastrointestinal Gastrointestinal: abdominal pain, no diarrhea, no nausea, no vomiting - Genitourinary Genitourinary: no difficulty urinating, no difficulty voiding, no dysuria, no hematuria - Neurological Nerological: as per HPI Exam - Vital Signs Vital signs: Initial Vital Signs Temp Pulse Resp BP Pulse Ox 98.8 F 73 18 157/108 100 07/30/18 14:02 07/30/18 14:02 07/30/18 14:02 07/30/18 14:02 07/30/18 14:02 - Constitutional Constitutional: well developed, well nourished, no acute distress - HEENT HEENT: EOMI, PERRL, Normocephaly, Mucus Membranes Moist - Neck Neck exam: full ROM - Lungs Respiratory exam: CTAB - Cardiovascular Cardiovascular exam: RRR, +S1, +S2 - Breasts Breast: bilateral: normal - Abdomen Abdomen: Present: bowel sounds normal, diffuse tenderness (mild, without rebound, guarding or rigidity) - Extremities Extremities exam: full ROM, pedal edema (+ pedal edema, 2+ pitting edema of bilateral legs to thighs), warm - Uterus Uterus exam: Present: normal size, normal contour Results Result Diagrams: 07/30/18 14:06 Abnormal lab results WBC 12.1 K/mcL (4.3-11.1) H 07/30/18 14:06 RBC 3.20 M/mcL (3.82-4.97) L 07/30/18 14:06 Hgb 7.6 g/dL (11.5-15.4) L 07/30/18 14:06 Hct 25.5 % (35.3-44.9) L 07/30/18 14:06 MCV 79.7 fL (83.0-100.0) L 07/30/18 14:06 MCH 23.8 pg (28.0-33.3) L 07/30/18 14:06 MCHC 29.8 g/dL (31.6-35.5) L 07/30/18 14:06 RDW 15.6 % (11.5-14.5) H 07/30/18 14:06 9.3 K/mcL (1.6-8.9) H 07/30/18 14:06 5.7 g/dL (6.4-8.9) L 07/30/18 14:06 3.0 g/dL (3.5-5.7) L 07/30/18 14:06 Large (Negative) H 07/30/18 14:21 Ur Leukocyte Esterase Moderate (Negative) H 07/30/18 14:21 15-30 per hpf (0-3) H 07/30/18 14:21 30-50 per hpf (0-3) H 07/30/18 14:21 Ur Culture Indicated? YES (NO) A 07/30/18 14:21 All other labs normal.
[2018-07-30] MEDS ORDERED: Measles/Mumps/Rubella Vacc 0.5 ML VIAL SQ PRN (17:54)
[2018-07-30] MEDS ORDERED: Acetaminophen 325 MG TABLET PO PRN (17:54)
[2018-07-30] MEDS ORDERED: Oxytocin 20 units/ LR 1000 mL 20 UNIT/1,000 ML BAG IVC SCH (18:00)
[2018-07-30] MEDS ORDERED: Ringers Solution, Lactated 1,000 ML IVC SCH (18:15)
[2018-07-30] MEDS: Prenatal Vit/FA 1 EACH TABLET PO SCH (18:20)
--- NOTE | 2018-07-30 18:53 | Event Note ---
Date of Encounter: 07/30/18 Time of Encounter: 18:50 I want to see patient. Patient doing very well. Patient extremely anxious. Blood pressure 150/100. Patient denies headache and scotoma. Patient concerned she has preeclampsia. We reviewed her lab work which was all completely normal today. Patient with no symptoms. Swelling she states is gone down tremendously. On exam she still has 1-2+ pedal edema. She states that she does feel much better. Overall she does look very good. She is not hyperreflexic or have clonus.. We discussed that I am going to start her on a low-dose antihypertensive to find what dosages she will take and how sensitive she is to medication. Once we have her pressures now we will probably start her on an extended release tablet to that she can go home on this. She was very happy with this. She has absolutely no other complaints whatsoever today upon me seeing her. I believe the biggest issue is her anxiety.
[2018-07-30] MEDS ORDERED: NIFEdipine XL (24 HR) 30 MG TAB.ER.24 PO ONE (20:00)
[2018-07-30 23:00] LABS: Basophils % 0.2 %; Eosinophils # 0.2 K/mcL (0.0-0.6); Eosinophils % 1.9 %; Hematocrit 23.9 % (35.3-44.9); Hemoglobin 7.2 g/dL (11.5-15.4); Immature Granulocytes % 1.1 % (0-4); Lymphocytes # 2.2 K/mcL (0.6-4.6); Lymphocytes % 19.6 %; Mean Corpuscular HGB Conc 30.1 g/dL (31.6-35.5); Mean Corpuscular Hemoglobin 23.6 pg (28.0-33.3); Mean Corpuscular Volume 78.4 fL (83.0-100.0); Mean Platelet Volume 12.2 fL (9.4-12.4); Monocytes # 0.6 K/mcL (0.0-1.3); Monocytes % 5.7 %; Neutrophils # 7.9 K/mcL (1.6-8.9); Nucleated Red Blood Cells 0.2 /100 WBC (0); Platelet Count 233 K/mcL (140-400); Red Blood Count 3.05 M/mcL (3.82-4.97); Red Cell Distribution Width 15.9 % (11.5-14.5); Segmented Neutrophils % 71.5 %
[2018-07-30] MEDS ORDERED: *HR* HYDROcodone/Acet 5/325 mg TABLET PO PRN (23:04)
[2018-07-30 23:07] LABS: Alanine Aminotransferase 15 Units/L (7-52); Aspartate Amino Transferase 24 Units/L (13-39); BUN/Creatinine Ratio 11 (6-26); Blood Urea Nitrogen 9 mg/dL (6-20); Lactate Dehydrogenase 202 Units/L (140-271); eGFR For Non-African Americans > 60 (> 60)
--- NOTE | 2018-07-30 23:10 | Event Note ---
Date of Encounter: 07/30/18 Time of Encounter: 23:08 Called to room by nursing, patient crying in pain. Pt states is having severe vaginal pain, no external hematoma noted. laceration repair in place, fundus firm at u-3. scant vaginal bleeding noted. discussed with Dr. Anders, will start on [place].
[2018-07-31] MEDS: Ibuprofen 600 MG TABLET PO PRN ×2 (00:49→06:44)
[2018-07-31 06:25] LABS: Basophils % 0.3 %; Eosinophils # 0.2 K/mcL (0.0-0.6); Eosinophils % 1.6 %; Hemoglobin 8.1 g/dL (11.5-15.4); Immature Granulocytes % 1.2 % (0-4); Lymphocytes # 1.9 K/mcL (0.6-4.6); Mean Corpuscular Hemoglobin 23.5 pg (28.0-33.3); Mean Corpuscular Volume 78.5 fL (83.0-100.0); Mean Platelet Volume 10.8 fL (9.4-12.4); Monocytes # 0.7 K/mcL (0.0-1.3); Monocytes % 5.7 %; Nucleated Red Blood Cells 0.2 /100 WBC (0); Platelet Count 247 K/mcL (140-400); Red Blood Count 3.44 M/mcL (3.82-4.97); Red Cell Distribution Width 15.9 % (11.5-14.5); Segmented Neutrophils % 75.2 %
[2018-07-31 06:45] LABS: Alanine Aminotransferase 20 Units/L (7-52); Aspartate Amino Transferase 30 Units/L (13-39); BUN/Creatinine Ratio 14 (6-26); Blood Urea Nitrogen 9 mg/dL (6-20); Lactate Dehydrogenase 208 Units/L (140-271); Uric Acid 5.8 mg/dL (2.3-7.6); eGFR For Non-African Americans > 60 (> 60)
--- NOTE | 2018-07-31 08:12 | Discharge Summary ---
Date of Encounter: 07/31/18 Time of Encounter: 08:12 - Discharge Diagnosis (1) Status post vaginal delivery Priority: Primary Status: Acute (2) Hypertension affecting , delivered, current hospitalization Priority: Primary Status: Acute Comments: Patient blood pressures stabilized on Procardia and was discharged home on Procardia 30 mg XL one daily as necessary elevated blood pressures she will follow up in the office later this week for blood pressure check. (3) anemia Priority: Secondary Status: Acute - Discharge Medications Prescriptions: No Action Breast Pump [BREAST PUMP] 1 each .ROUTE AD #1 each Docusate [Colace] 100 mg PO BID capsule Benzocaine/Menthol [Dermoplast Pain Relieving [place]] 78 gm TP PRN PRN #1 aerosol PRN Reason: perineal pain Ferrous Sulfate 325 mg PO BID #60 tablet Ibuprofen [Motrin] 600 mg PO Q6HR PRN #60 tablet PRN Reason: Cramping Acetaminophen [Tylenol] 650 mg PO Q6HR PRN tablet PRN Reason: Mild Pain Pnv with Ca,No.72/Iron/FA [Pnv Plus Multivit Tab] 1 each PO DAILY Home Medications: Acetaminophen [Tylenol] 650 mg PO Q6HR PRN tablet 07/29/18 [Rx] Benzocaine/Menthol [Dermoplast Pain Relieving [place]] 78 gm TP PRN PRN #1 aerosol 07/29/18 [Rx] Breast Pump [BREAST PUMP] 1 each .ROUTE AD #1 each 07/29/18 [Rx] Docusate [Colace] 100 mg PO BID capsule 07/29/18 [Rx] Ferrous Sulfate 325 mg PO BID #60 tablet 07/29/18 [Rx] Ibuprofen [Motrin] 600 mg PO Q6HR PRN #60 tablet 07/29/18 [Rx] Pnv with Ca,No.72/Iron/FA [Pnv Plus Multivit Tab] 1 each PO DAILY 07/30/18 [History] Allergies/Adverse Reactions: Allergy/AdvReac Type Severity Reaction Status Date / Time No Known Allergies Allergy Verified 07/27/18 21:15 Data Procedures and tests throughout hospitalization: Laboratory Tests 07/30/18 07/30/18 07/30/18 14:06 14:06 14:14 WBC 12.1 H RBC 3.20 L Hgb 7.6 L Hct 25.5 L MCV 79.7 L MCH 23.8 L MCHC 29.8 L RDW 15.6 H Plt Count 229 MPV 12.1 Immature Gran % 1.2 Seg Neutrophils % 76.3 Lymphocytes % 14.8 Monocytes % 5.8 Eosinophils % 1.7 Basophils % 0.2 Neutrophils # 9.3 H Lymphocytes # 1.8 Monocytes # 0.7 Eosinophils # 0.2 Basophils # 0.0 Nucleated RBCs/100 WBC BUN Creatinine Est GFR ( Amer) Est GFR (Non-Af Amer) BUN/Creatinine Ratio Uric Acid Total Bilirubin 0.3 Direct Bilirubin 0.0 Indirect Bilirubin 0.3 AST 24 ALT 16 Alkaline Phosphatase 102 Lactate Dehydrogenase Serum Total Protein 5.7 L Albumin 3.0 L Globulin 2.7 Albumin/Globulin Ratio 1.1 Urine Color Urine Clarity Urine pH Ur Specific [place] Urine Protein Urine Glucose (UA) Urine Ketones Urine Blood Urine Nitrite Urine Bilirubin Urine Urobilinogen Ur Leukocyte Esterase Urine Microscopic RBC Urine Microscopic WBC Ur Squamous Epith Cells Urine Bacteria Hyaline Casts Ur Culture Indicated? Ur Uric Acid 16 07/30/18 07/30/18 07/30/18 14:21 22:07 22:07 WBC 11.1 RBC 3.05 L Hgb 7.2 L Hct 23.9 L MCV 78.4 L MCH 23.6 L MCHC 30.1 L RDW 15.9 H Plt Count 233 MPV 12.2 Immature Gran % 1.1 Seg Neutrophils % 71.5 Lymphocytes % 19.6 Monocytes % 5.7 Eosinophils % 1.9 Basophils % 0.2 Neutrophils # 7.9 Lymphocytes # 2.2 Monocytes # 0.6 Eosinophils # 0.2 Basophils # 0.0 Nucleated RBCs/100 WBC 0.2 H BUN 9 Creatinine 0.81 Est GFR ( Amer) > 60 Est GFR (Non-Af Amer) > 60 BUN/Creatinine Ratio 11 Uric Acid 6.0 Total Bilirubin Direct Bilirubin Indirect Bilirubin AST 24 ALT 15 Alkaline Phosphatase Lactate Dehydrogenase 202 Serum Total Protein Albumin Globulin Albumin/Globulin Ratio Urine Color Yellow Urine Clarity Clear Urine pH 6.5 Ur Specific [place] 1.011 Urine Protein Negative Urine Glucose (UA) Normal Urine Ketones Negative Urine Blood Large H Urine Nitrite Negative Urine Bilirubin Negative Urine Urobilinogen Normal Ur Leukocyte Esterase Moderate H Urine Microscopic RBC 15-30 H Urine Microscopic WBC 30-50 H Ur Squamous Epith Cells Few Urine Bacteria Few Hyaline Casts None Seen Ur Culture Indicated? YES A Ur Uric Acid 07/31/18 07/31/18 05:59 05:59 WBC 12.0 H RBC 3.44 L Hgb 8.1 L Hct 27.0 L MCV 78.5 L MCH 23.5 L MCHC 30.0 L RDW 15.9 H Plt Count 247 MPV 10.8 Immature Gran % 1.2 Seg Neutrophils % 75.2 Lymphocytes % 16.0 Monocytes % 5.7 Eosinophils % 1.6 Basophils % 0.3 Neutrophils # 9.0 H Lymphocytes # 1.9 Monocytes # 0.7 Eosinophils # 0.2 Basophils # 0.0 Nucleated RBCs/100 WBC 0.2 H BUN 9 Creatinine 0.66 Est GFR ( Amer) > 60 Est GFR (Non-Af Amer) > 60 BUN/Creatinine Ratio 14 Uric Acid 5.8 Total Bilirubin Direct Bilirubin Indirect Bilirubin AST 30 ALT 20 Alkaline Phosphatase Lactate Dehydrogenase 208 Serum Total Protein Albumin Globulin Albumin/Globulin Ratio Urine Color Urine Clarity Urine pH Ur Specific [place] Urine Protein Urine Glucose (UA) Urine Ketones Urine Blood Urine Nitrite Urine Bilirubin Urine Urobilinogen Ur Leukocyte Esterase Urine Microscopic RBC Urine Microscopic WBC Ur Squamous Epith Cells Urine Bacteria Hyaline Casts Ur Culture Indicated? Ur Uric Acid Labs on day of discharge: Labs from last 24 hours 07/31/18 07/31/18 07/30/18 05:59 05:59 22:07 WBC 12.0 H RBC 3.44 L Hgb 8.1 L Hct 27.0 L MCV 78.5 L MCH 23.5 L MCHC 30.0 L RDW 15.9 H Plt Count 247 MPV 10.8 Immature Gran % 1.2 Seg Neutrophils % 75.2 Lymphocytes % 16.0 Monocytes % 5.7 Eosinophils % 1.6 Basophils % 0.3 Neutrophils # 9.0 H Lymphocytes # 1.9 Monocytes # 0.7 Eosinophils # 0.2 Basophils # 0.0 Nucleated RBCs/100 WBC 0.2 H BUN 9 9 Creatinine 0.66 0.81 Est GFR ( Amer) > 60 > 60 Est GFR (Non-Af Amer) > 60 > 60 BUN/Creatinine Ratio 14 11 Uric Acid 5.8 6.0 Total Bilirubin Direct Bilirubin Indirect Bilirubin AST 30 24 ALT 20 15 Alkaline Phosphatase Lactate Dehydrogenase 208 202 Serum Total Protein Albumin Globulin Albumin/Globulin Ratio Urine Color Urine Clarity Urine pH Ur Specific [place] Urine Protein Urine Glucose (UA) Urine Ketones Urine Blood Urine Nitrite Urine Bilirubin Urine Urobilinogen Ur Leukocyte Esterase Urine Microscopic RBC Urine Microscopic WBC Ur Squamous Epith Cells Urine Bacteria Hyaline Casts Ur Culture Indicated? Ur Uric Acid 07/30/18 07/30/18 07/30/18 22:07 14:21 14:14 WBC 11.1 RBC 3.05 L Hgb 7.2 L Hct 23.9 L MCV 78.4 L MCH 23.6 L MCHC 30.1 L RDW 15.9 H Plt Count 233 MPV 12.2 Immature Gran % 1.1 Seg Neutrophils % 71.5 Lymphocytes % 19.6 Monocytes % 5.7 Eosinophils % 1.9 Basophils % 0.2 Neutrophils # 7.9 Lymphocytes # 2.2 Monocytes # 0.6 Eosinophils # 0.2 Basophils # 0.0 Nucleated RBCs/100 WBC 0.2 H BUN Creatinine Est GFR ( Amer) Est GFR (Non-Af Amer) BUN/Creatinine Ratio Uric Acid Total Bilirubin Direct Bilirubin Indirect Bilirubin AST ALT Alkaline Phosphatase Lactate Dehydrogenase Serum Total Protein Albumin Globulin Albumin/Globulin Ratio Urine Color Yellow Urine Clarity Clear Urine pH 6.5 Ur Specific [place] 1.011 Urine Protein Negative Urine Glucose (UA) Normal Urine Ketones Negative Urine Blood Large H Urine Nitrite Negative Urine Bilirubin Negative Urine Urobilinogen Normal Ur Leukocyte Esterase Moderate H Urine Microscopic RBC 15-30 H Urine Microscopic WBC 30-50 H Ur Squamous Epith Cells Few Urine Bacteria Few Hyaline Casts None Seen Ur Culture Indicated? YES A Ur Uric Acid 16 07/30/18 07/30/18 14:06 14:06 WBC 12.1 H RBC 3.20 L Hgb 7.6 L Hct 25.5 L MCV 79.7 L MCH 23.8 L MCHC 29.8 L RDW 15.6 H Plt Count 229 MPV 12.1 Immature Gran % 1.2 Seg Neutrophils % 76.3 Lymphocytes % 14.8 Monocytes % 5.8 Eosinophils % 1.7 Basophils % 0.2 Neutrophils # 9.3 H Lymphocytes # 1.8 Monocytes # 0.7 Eosinophils # 0.2 Basophils # 0.0 Nucleated RBCs/100 WBC BUN Creatinine Est GFR ( Amer) Est GFR (Non-Af Amer) BUN/Creatinine Ratio Uric Acid Total Bilirubin 0.3 Direct Bilirubin 0.0 Indirect Bilirubin 0.3 AST 24 ALT 16 Alkaline Phosphatase 102 Lactate Dehydrogenase Serum Total Protein 5.7 L Albumin 3.0 L Globulin 2.7 Albumin/Globulin Ratio 1.1 Urine Color Urine Clarity Urine pH Ur Specific [place] Urine Protein Urine Glucose (UA) Urine Ketones Urine Blood Urine Nitrite Urine Bilirubin Urine Urobilinogen Ur Leukocyte Esterase Urine Microscopic RBC Urine Microscopic WBC Ur Squamous Epith Cells Urine Bacteria Hyaline Casts Ur Culture Indicated? Ur Uric Acid Preliminary micro results at discharge 07/30/18 14:21 Urine Culture - Preliminary Urine,Clean Catch Culture is incubating. Date of admission: 07/30/18 15:39 Primary care physician: Lion Douglass DO Discharging clinician: Augusto Cornelius Anticipated date of discharge: 07/31/18 - Patient Status Disposition: Home, Self-Care Condition: Fair Functional capacity at discharge: independent ambulation Overall status at discharge: patient is progressing back to baseline - Discharge Instructions Follow Up With: Lion Douglass DO [Primary Care Provider] - Yasmin Hunt DO [Partnered Physician] - - Diet and Activity Activity: increase activity as tolerated Diet: advance to your usual diet Hospital Course PARTS ADMINISTRATOR Reason for admission: other (Status post vaginal delivery postop day #3, postp artum hypertension, anemia) Discharge diagnosis: other (Same) Hospital course: Patient is a 37-year-old status post vaginal delivery day #3 presented to the emergency room with elevated blood pressures. Patient states she has no issues with blood pressures throughout her the last few visits they started to elevate but nothing that would require any medication she states even in labor and on day #1 she did not require any antihypertensives patient states yesterday started not feeling well but having a headache and blurred vision scotoma and just not feeling well she took her blood pressure was elevated did call the on-call provider who recommended she come to the emergency room. Her initial blood pressure was elevated emergency room because she was a recent delivery they did give her 4 g bolus of magnesium sulfate until lab work came back. Labs were all normal blood pressures did eventually come down with an antihypertensive. Patient was admitted for monitoring. Patient has a history of severe anxiety and when gets anxious blood pressure does elevate. Patient through the night did have some issues with perineal discomfort she only had a first degree perineal laceration but did require some narcotics which helped her pain and she is feeling much better. Blood pressure this morning was stable and 90s over 60s she was asymptomatic. Repeat lab works also within normal limits I see no reason to keep the patient. Did recommend discharging her home on Procardia 30 mg XL daily as needed since she has a blood pressure cuff at home to take it periodically a stable not to take medication and she was given arrangements to take it and not to do blood pressures to frequent we will schedule her for follow-up visit later this week for blood pressure check to make sure everything is stable. Patients condition at the time of discharge was stable. Time Attestation: Total time spent providing and/or coordinating discharge services: Exam - Constitutional Vitals: Temp Pulse Resp BP Pulse Ox 98.1 F 101 14 98/56 97 07/31/18 04:37 07/31/18 04:37 07/31/18 04:37 07/31/18 06:41 07/31/18 04:37 General appearance IM: mild distress, A&O X 3 - Respiratory Respiratory exam: Present: CTAB - Cardiovascular Cardiovascular exam IM: Present: RRR - GI/Abdominal GI/Abdominal exam IM: normal bowel sounds Incision: normal - Uterine Tone: Firm Uterus Position: At Umbilicus - Extremities Exam Extremities exam IM: Present: full ROM - Neurological Exam Neurological exam: alert, oriented X3
[2018-07-31 08:18] VITALS: BP 109/73
[2018-07-31] MEDS: Prenatal Vit/FA 1 EACH TABLET PO SCH (08:22)
== END 2018-07-31 11:12 | disposition home or self-care (01) ==
LOC: EMEROOARM 13:58 → 1NENUOBS 13:58
PROVIDERS: ADMIT Obstetrics & Gynecology; ATTEND Obstetrics & Gynecology

== ENCOUNTER 2020-09-21 18:22 | Inpatient (IN) ==
[~2020-09-21 18:22] MED LIST changes: +*HR* Nalbuphine 10 MG/ML AMPUL IV PRN; -*HR* Nalbuphine 10 MG/ML AMPUL IVP PRN; +Azithromycin 500 MG in 0.9 % Sodium Chloride 250 ML IVPB PRN; +EPHEDrine 50 MG/ML VIAL IVP PRN; -Lidocaine -MPF 1% 5 ML AMPUL ONE; +Lidocaine 1% 20 ML MDV INFILT PRN; -Ringers Solution, Lactated 1,000 ML ONE
[2020-09-21 18:26] LABS: Eosinophils % 0.4 %; Hematocrit 37.8 % (35.3-44.9); Hemoglobin 12.4 g/dL (11.5-15.4); Immature Granulocytes % 0.8 % (0-4); Lymphocytes % 23.9 %; Mean Corpuscular HGB Conc 32.8 g/dL (31.6-35.5); Mean Corpuscular Hemoglobin 28.9 pg (28.0-33.3); Mean Corpuscular Volume 88.1 fL (83.0-100.0); Mean Platelet Volume 11.4 fL (9.4-12.4); Monocytes % 5.3 %; Platelet Count 215 K/mcL (140-400); Red Blood Count 4.29 M/mcL (3.82-4.97); Red Cell Distribution Width 14.1 % (11.5-14.5); Segmented Neutrophils % 69.2 %; White Blood Count 9.8 K/mcL (4.3-11.1)
[2020-09-21 18:27] LABS: Basophils % 0.4 %; Lymphocytes # 2.3 K/mcL (0.6-4.6); Monocytes # 0.5 K/mcL (0.0-1.3); Neutrophils # 6.8 K/mcL (1.6-8.9)
[2020-09-21 18:36] LABS: Amphetamine Screen,Urine Negative ng/mL (Cutoff=1000); Barbiturate Screen,Urine Negative ng/mL (Cutoff=200); Benzodiazepines Screen,Urine Negative ng/mL (Cutoff=200); Cannabinoid Screen,Urine Negative ng/mL (Cutoff = 50); Cocaine Screen,Urine Negative ng/mL (Cutoff= 300); Opiate Screen,Urine Negative ng/mL (Cutoff=300); Phencyclidine Screen,Urine Negative ng/mL (Cutoff=25)
[2020-09-21] MEDS ORDERED: *HR* FentaNYL (PF) 250 MCG/5 ML VIAL ONE (21:33)
[2020-09-21] MEDS ORDERED: *HR* Midazolam HCl 2 MG/2 ML VIAL ONE (21:33)
[2020-09-21] MEDS ORDERED: *HR* Oxytocin 10 UNIT/ML VIAL IM ONE ×2 (21:34→21:46)
[2020-09-21] MEDS ORDERED: *HR* FentaNYL (PF) 100 MCG/2 ML VIAL ONE (21:40)
[2020-09-21] MEDS ORDERED: *HR* Morphine Sulfate/PF 10 MG/10 ML AMPUL ONE (21:40)
[2020-09-21] MEDS ORDERED: EPHEDrine 50 MG/ML VIAL ONE (21:47)
[2020-09-21] MEDS ORDERED: *HR* Magnesium Sulfate 1 GM/2 ML VIAL ONE (21:53)
[2020-09-21] MEDS ORDERED: Lidocaine -MPF 2% 5 ML VIAL ONE (21:58)
[2020-09-21] MEDS ORDERED: *HR* Succinylcholine 200 MG/10 ML VIAL IVP ONE (22:13)
[2020-09-21] MEDS ORDERED: Lidocaine/EPI 1:200k 2% PF 20 ML VIAL ONE (22:13)
[2020-09-21] MEDS ORDERED: Ondansetron 4 MG/2 ML VIAL ONE (22:33)
[2020-09-21] MEDS ORDERED: Oxytocin 20 units/ LR 1000 mL 20 UNIT/1,000 ML BAG IVC ONE (23:03)
[2020-09-21] MEDS ORDERED: Acetaminophen IV 1,000 MG/100 ML BAG IVPB ONE (23:10)
[2020-09-22] MEDS ORDERED: Oxytocin 20 units/ LR 1000 mL 20 UNIT/1,000 ML BAG IVC ONE (00:50)
[2020-09-22] MEDS ORDERED: Oxytocin 20 units/ LR 1000 mL 20 UNIT/1,000 ML BAG IVC SCH (01:07)
[2020-09-22] MEDS ORDERED: Ondansetron 4 MG/2 ML VIAL IVP PRN (01:07)
[2020-09-22] MEDS ORDERED: Metoclopramide 10 MG/2 ML VIAL IVP PRN (01:07)
[2020-09-22] MEDS ORDERED: Rho Immune Globulin 1,500 UNIT SYRINGE IM ONE ×3 (01:07→15:30)
[2020-09-22] MEDS: Ibuprofen 600 MG TABLET PO SCH ×4 (01:40→18:12)
[2020-09-22] MEDS ORDERED: *HR* Nalbuphine 10 MG/ML AMPUL IV PRN (02:52)
[2020-09-22 04:53] LABS: Basophils % 0.1 %; Hematocrit 33.3 % (35.3-44.9); Hemoglobin 10.8 g/dL (11.5-15.4); Immature Granulocytes % 0.6 % (0-4); Lymphocytes # 1.6 K/mcL (0.6-4.6); Lymphocytes % 8.9 %; Mean Corpuscular HGB Conc 32.4 g/dL (31.6-35.5); Mean Corpuscular Hemoglobin 29.4 pg (28.0-33.3); Mean Corpuscular Volume 90.7 fL (83.0-100.0); Mean Platelet Volume 11.6 fL (9.4-12.4); Monocytes # 0.9 K/mcL (0.0-1.3); Neutrophils # 14.9 K/mcL (1.6-8.9); Platelet Count 201 K/mcL (140-400); Red Blood Count 3.67 M/mcL (3.82-4.97); Segmented Neutrophils % 85.4 %; White Blood Count 17.4 K/mcL (4.3-11.1)
[2020-09-22] MEDS: Acetaminophen 325 MG TABLET PO SCH ×3 (06:52→18:11)
[2020-09-22] MEDS: cephALEXin 500 MG CAPSULE PO SCH ×3 (08:34→20:33)
[2020-09-22] MEDS: Prenatal Vit/FA 1 EACH TABLET PO SCH (08:34)
[2020-09-22] MEDS: metroNIDAZOLE 500 MG TABLET PO SCH ×3 (08:34→20:33)
[2020-09-22] MEDS: *HR* OxyCODONE Immed Rel 5 MG TABLET PO PRN ×3 (08:43→20:44)
[2020-09-22] MEDS: Simethicone 80 MG TAB.CHEW PO PRN ×2 (12:10→20:46)
[2020-09-23] MEDS: Ibuprofen 600 MG TABLET PO SCH ×4 (00:38→20:01)
[2020-09-23] MEDS: Acetaminophen 325 MG TABLET PO SCH ×5 (00:38→22:55)
[2020-09-23] MEDS: *HR* OxyCODONE Immed Rel 5 MG TABLET PO PRN ×5 (02:24→22:56)
[2020-09-23] MEDS: Simethicone 80 MG TAB.CHEW PO PRN ×3 (06:19→20:01)
[2020-09-23] MEDS: metroNIDAZOLE 500 MG TABLET PO SCH ×3 (09:10→20:00)
[2020-09-23] MEDS: cephALEXin 500 MG CAPSULE PO SCH ×3 (09:10→20:00)
[2020-09-23] MEDS: Prenatal Vit/FA 1 EACH TABLET PO SCH (09:10)
[2020-09-23] MEDS ORDERED: *HR* OxyCODONE Immed Rel 5 MG TABLET PO ONE (14:01)
[2020-09-24] MEDS: Ibuprofen 600 MG TABLET PO SCH ×3 (02:06→15:44)
[2020-09-24] MEDS: *HR* OxyCODONE Immed Rel 5 MG TABLET PO PRN ×4 (03:19→16:38)
[2020-09-24] MEDS: Acetaminophen 325 MG TABLET PO SCH ×2 (07:37→14:01)
[2020-09-24] MEDS: Prenatal Vit/FA 1 EACH TABLET PO SCH (07:37)
[2020-09-24 08:09] VITALS: BP 102/72
== END 2020-09-24 17:33 | disposition home or self-care (01) | DRG 540 ==
LOC: 1NENULAB → 1NENUOBS 09-22 00:50
PROVIDERS: ADMIT Obstetrics & Gynecology; ATTEND Obstetrics & Gynecology